=== PATIENT | female | born 1955 | race Caucasian/White ===

== ENCOUNTER 2018-05-08 09:21 | Emergency (ER) | payer OTHER ==
[~2018-05-08] VITALS: Ht 162.6 cm; Wt 65.8 kg
[~2018-05-08 09:21] MED LIST: LOSARTAN POTASS50 MG; METFORMIN HCL500 MG
[2018-05-08] MEDS ORDERED: LIPITOR20 MG (09:35)
== END 2018-05-08 13:09 | disposition home or self-care (01) ==
LOC: ER 09:21
DX: N20.0 Calculus of kidney (principal); K57.90 Diverticulosis of intestine, part unspecified, without perforation or abscess without bleeding; R10.32 Left lower quadrant pain

== ENCOUNTER 2020-11-09 16:14 | Emergency (ER) | payer OTHER ==
[~2020-11-09] VITALS: Ht 162.6 cm; Wt 67.1 kg
[~2020-11-09 16:14] MED LIST changes: +LIPITOR20 MG
[2020-11-09] MEDS ORDERED: TAMS0.4C (16:56)
[2020-11-09] MEDS ORDERED: MELOXICAM15 MG (16:56)
[2020-11-09] MEDS ORDERED: HORIZANT300 MG (16:57)
== END 2020-11-10 10:13 | disposition home or self-care (01) ==
LOC: ER 16:14
DX: R32 Unspecified urinary incontinence (principal); N39.0 Urinary tract infection, site not specified; N13.8 Other obstructive and reflux uropathy

== ENCOUNTER → 2020-11-21 | Emergency (ER) | payer OTHER ==
[~2020-11-21] VITALS: Ht 162.6 cm; Wt 67.1 kg
[~2020-11-21] MED LIST changes: +HORIZANT300 MG; +MELOXICAM15 MG; +TAMS0.4C
== END | disposition home or self-care (01) ==
LOC: ER 11:17
DX: N13.2 Hydronephrosis with renal and ureteral calculous obstruction (principal); K80.20 Calculus of gallbladder without cholecystitis without obstruction; K76.0 Fatty (change of) liver, not elsewhere classified; Z03.818 Encounter for observation for suspected exposure to other biological agents ruled out

== ENCOUNTER 2021-11-20 11:38 | Emergency (ER) | payer OTHER ==
[~2021-11-20] VITALS: Ht 162.6 cm; Wt 73.5 kg
[2021-11-20] MEDS ORDERED: LOSARTAN POTAS100 MG PO (11:55)
[2021-11-20] MEDS ORDERED: GLIMEPIRIDE4 MG PO (11:56)
[2021-11-20] MEDS ORDERED: TOPROL XL50 M1 PO (11:57)
[2021-11-20] MEDS ORDERED: LIPOFEN50 MG PO (11:57)
[2021-11-20] MEDS ORDERED: HUMALOG100 UNIT/2 ×2 (12:08)
== END 2021-11-20 15:26 | disposition home or self-care (01) ==
LOC: ER 11:38
DX: N39.0 Urinary tract infection, site not specified (principal); E11.65 Type 2 diabetes mellitus with hyperglycemia; Z79.4 Long term (current) use of insulin; Z88.6 Allergy status to analgesic agent; E78.00 Pure hypercholesterolemia, unspecified; I10 Essential (primary) hypertension

== ENCOUNTER 2024-11-02 07:47 | Outpatient (CLI) | payer OTHER ==
[~2024-11-02 07:47] MED LIST changes: +GLIMEPIRIDE4 MG PO; +HUMALOG100 UNIT/2; +LIPOFEN50 MG PO; +LOSARTAN POTAS100 MG PO; +TOPROL XL50 M1 PO
== END 2024-11-02 07:49 | disposition home or self-care (01) ==
LOC: SONOGRAMA 07:47
PROVIDERS: ATTEND Pathology Anatomic Pathology & Clinical Pathology
DX: D34 Benign neoplasm of thyroid gland (principal); E07.89 Other specified disorders of thyroid; E04.1 Nontoxic single thyroid nodule